=== PATIENT | male | born 1955 | race Caucasian/White ===

== ENCOUNTER 2018-01-20 11:00 | Emergency (ER) | payer OTHER ==
[~2018-01-20] VITALS: Ht 188 cm; Wt 143.0 kg
[2018-01-20 11:04] VITALS: BP 191/88; PULSE 99; RESP 16; TEMP 97.9; O2SAT 97
[2018-01-20] MEDS ORDERED: HTN MED (11:11)
[2018-01-20] MEDS ORDERED: OFLO1SOL LEFT EAR (11:44)
--- NOTE | 2018-01-20 11:45 | PD ---
HPI Chief Complaint: ENT Complaint Time Seen by Provider: 11:18 Travel History International Travel<30 days: No Contact w/Intl Traveler<30days: No Traveled to known affect area: No History of Present Illness HPI 63-year-old male here with left ear discomfort and decreased hearing 2-3 days. Reported drainage from the ear this morning. No fever chills. Symptom severity is mild to moderate. No aggravating or alleviating factors. PFSH Past Medical History Medical History: Denies Significant Hx Hypertension: Yes Social History Alcohol Use: No Tobacco Use: No Substance Use: No Allergies-Medications (Allergen,Severity, Reaction): Coded Allergies: No Known Allergies (Unverified , 01/20/18) Reported Meds & Prescriptions Reported Meds & Active Scripts Active Reported [Htn Med] Review of Systems Except as stated in HPI: all other systems reviewed are Neg General / Constitutional: No: Fever Eyes: No: Visual changes HENT: Positive: Ear Discharge, Earache, No: Headaches Cardiovascular: No: Chest Pain or Discomfort Respiratory: No: Shortness of Breath Gastrointestinal: No: Abdominal Pain Genitourinary: No: Dysuria Musculoskeletal: No: Pain Skin: No Rash Physical Exam Narrative GENERAL: Alert and well-appearing 63-year-old male SKIN: Warm and dry. HEAD: Normocephalic. EYES: No injection or drainage. ENT: Left TM obscured by drainage/cerumen. Mild canal swelling. Scant amount of yellow discharge in the canal. No mastoid tenderness. Hearing is grossly intact NECK: Supple, trachea midline. No lymphadenopathy. CARDIOVASCULAR: Regular rate and rhythm without murmurs, gallops, or rubs. RESPIRATORY: Breath sounds equal bilaterally. No accessory muscle use. GASTROINTESTINAL: Abdomen soft, non-tender, nondistended. MUSCULOSKELETAL: No cyanosis, or edema. Data Data Last Documented VS Vital Signs Date Time Temp Pulse Resp B/P (MAP) Pulse Ox O2 Delivery O2 Flow Rate FiO2 01/20/18 11:04 97.9 99 16 191/88 (122) 97 MDM Medical Decision Making Medical Screen Exam Complete: Yes Emergency Medical Condition: Yes Differential Diagnosis Otitis externa, otitis media, cerumen impaction Narrative Course 63-year-old male here with left-sided otitis externa. He will be prescribed Floxin otic drops Diagnosis Primary Impression: Otitis externa Qualified Codes: H60.502 - Unspecified acute noninfective otitis externa, left ear Referrals: Primary Care Physician Additional Instructions: Medication as directed. Follow-up with your primary doctor. Scripts Ofloxacin Otic (Floxin Otic) 0.3 % Dana 10 DROP LEFT EAR DAILY for Infection, #1 BOTTLE 0 Refills Prov: Evelyn Pearl 01/20/18 Disposition: 01 DISCHARGE HOME Condition: Stable Evelyn Pearl January 20, 2018 11:45
== END 2018-01-20 11:57 | disposition home or self-care (01) ==
LOC: PHEFT 11:00
DX: H60.502 Unspecified acute noninfective otitis externa, left ear (principal); I10 Essential (primary) hypertension
CPT/HCPCS: 99283